=== PATIENT | female | born 1990 | race Caucasian/White ===

== ENCOUNTER 2020-09-28 10:49 | Emergency (ER) | payer OTHER, SELFPAY ==
[2020-09-28 11:02] VITALS: BP 134/93; PULSE 104; RESP 18; TEMP 36.9; O2SAT 98
--- NOTE | 2020-09-28 11:35 | ED.GENADULT ---
HPI - General Adult General Chief complaint: Upper Respiratory Infection Stated complaint: eye pressure Source: patient Mode of arrival: ambulatory Limitations: no limitations History of Present Illness HPI narrative: Patient presents for evaluation of sinus congestion and drainage for the last two days. She states that nasal drainage has been thick yellow/green mucopurulent in nature. She checked her temperature with a reading of 100 degrees Fahrenheit. She has had seventeen ENT surgeries including tympanoplasty. She states she has recurrent sinus infections. Typically she requires oral antibiotics to resolve her symptoms. She has been using her proair, which normally helps. She has also been using Vicks. She denies any chest pain, SOB, cough, nausea, vomiting, loss of taste/smell. No recent sick contacts. She does not smoke. ENT is Dr Herbert. Related Data Allergies Allergy/AdvReac Type Severity Reaction Status Date / Time codeine Allergy Rash Verified 09/28/20 11:02 [facility] Past Medical History Medical History (Updated 09/28/20 @ 11:44 by MYRA Garcia, ) History of PCOS Recurrent sinusitis Surgical History Surgical History H/O adenoidectomy History of tympanoplasty Family History Family History Mother Hypertension Father Hypertension Social History Social History Smoking status: Never smoker Alcohol intake: never Substance use: never Living arrangements: with family Gender identity (if verbalized by the patient): Female Sexual Orientation (if Verbalized by the Patient): Straight or Heterosexual Spiritual care concerns: No Exam Narrative: Exam Narrative: GENERAL: Well-appearing, well-nourished, and in no acute distress. HEAD: Normocephalic, atraumatic. EYES: PERRLA and EOMI. ENT: Nares clear, no rhinorrhea or epistaxis. Mucous membranes moist. Oropharynx without tonsillar hypertrophy exudate or other lesions. Bilateral maxillary sinus tenderness. right TM is completely opacified. Left TM with mild scarring and erythema present NECK: Supple. No adenopathy or masses. No carotid bruits or JVD CHEST: Clear to auscultation. No respiratory distress. No wheezes rales or rhonchi HEART: Regular rate and rhythm. No murmur heard. Normal peripheral pulses. ABDOMEN: Soft, nontender, nondistended, normal active bowel sounds. EXTREMITIES: Normal range of motion. No edema. SKIN: Warm, dry, no rash. NEURO: No focal deficits. Alert and oriented x3. PSYCH: Normal mood and affect. Course Course Emergency Course: This is a 29-year-old female who presents with a 2-day history of mucopurulent discharge from both nares. She has a history of recurrent sinusitis. She is required antibiotic therapy in the past as recommended by ENT. [id number] therapies have not been effective. Given the presence of mucopurulent discharge with recurrent infections and 17 ENT surgeries in the past, will treat with oral antibiotics. She was advised to follow-up with ENT and return for any worsening symptoms. Blood pressure mildly elevated while here. No chest pain or SOB so was instructed to follow up outpatient for further evaluation of BP. Vital Signs Vital signs: Vital Signs Temperature 36.9 C 09/28/20 11:02 Pulse Rate 104 H 09/28/20 11:02 Respiratory Rate 18 09/28/20 11:02 Blood Pressure 134/93 H 09/28/20 11:02 Pulse Oximetry 98 09/28/20 11:02 Temperature 36.9 C 09/28/20 11:02 Pulse Rate 104 H 09/28/20 11:02 Respiratory Rate 18 09/28/20 11:02 Blood Pressure 134/93 H 09/28/20 11:02 Pulse Oximetry 98 09/28/20 11:02 Medical Decision Making Differential Diagnosis Differential Diagnosis: Acute bacterial rhinosinusitis versus otitis media versus viral URI versus other Vital Signs Vital
== END 2020-09-28 12:02 | disposition home or self-care (01) ==
PROVIDERS: Emergency Provider Nurse Practitioner
DX: J00 Acute nasopharyngitis [common cold] (principal); J01.90 Acute sinusitis, unspecified; R03.0 Elevated blood-pressure reading, without diagnosis of hypertension; E28.2 Polycystic ovarian syndrome
CPT/HCPCS: 99203; G0463

== ENCOUNTER 2021-04-06 10:21 | Emergency (ER) | payer OTHER, SELFPAY ==
[2021-04-06 10:45] VITALS: BP 127/94; PULSE 102; RESP 16; TEMP 36.8; O2SAT 100
--- NOTE | 2021-04-06 12:00 | ED.URI ---
HPI - URI/Sore Throat General Chief Complaint: Upper Respiratory Infection Stated Complaint: Congestion,Cough Time Seen by Provider: 04/06/21 11:30 Source: patient and RN notes reviewed Mode of arrival: ambulatory Limitations: no limitations History of Present Illness HPI Narrative: Patient presents today complaining of 5-day history of nasal congestion, cough, sneezing. Denies fever, shortness of breath. She has been taking Tylenol Cold and sinus for 3 days as well as occasionally using her ProAir for the past 2 days. Son with similar symptoms. Patient reports she does have some slight asthma symptoms and states she uses the ProAir mostly as a preventative for bronchitis. Reports she has been exposed to RSV. MD elicited complaint: cough and nasal congestion Related Data Allergies Allergy/AdvReac Type Severity Reaction Status Date / Time codeine Allergy Other Verified 04/06/21 11:28 Review of Systems Review of Systems: CONSTITUTIONAL: Denies body aches, fever, chills, or sweats. EYES: Denies visual changes, redness, or discharge. ENT: Denies rhinorrhea,sore throat, or otalgia.+ Congestion, sneezing CARDIOVASCULAR: Denies chest pain, palpitations, or edema. RESPIRATORY: Denies dyspnea.+ Cough GASTROINTESTINAL: Denies abdominal pain, nausea, vomiting, or diarrhea. GENITOURINARY: Denies dysuria or hematuria. SKIN: Denies rash, itching, or wounds. MUSCULOSKELETAL: Denies back pain, joint pain, or myalgia. NEUROLOGIC: Denies headache, numbness, tingling, or weakness. PSYCH: Denies depression or anxiety. [facility] Past Medical History Medical History History of PCOS Recurrent sinusitis Surgical History Surgical History H/O adenoidectomy History of tympanoplasty Family History Family History Mother Hypertension Father Hypertension Social History Social History Smoking status: Never smoker Alcohol intake: never Substance use: never Gender identity (if verbalized by the patient): Female Sexual Orientation (if Verbalized by the Patient): Straight or Heterosexual Spiritual care concerns: No Comments At time of signature, I have reviewed and agree with nursing past medical, surgical, social and family history unless otherwise noted. Please see nursing chart for further information. There is no relevant family history pertinent to the presenting complaint Exam Narrative: GENERAL: Well-appearing, well-nourished, and in no acute distress. HEAD: Normocephalic, atraumatic. EYES: EOMI. No redness or drainage. Conjunctivae normal. ENT: Mucous membranes pink and moist. Nares clear. No rhinorrhea. TMs normal bilaterally. Throat normal. Uvula midline. NECK: Normal AROM. Supple. No lymphadenopathy. CHEST: No respiratory distress. Clear to auscultation. HEART: Regular rate and rhythm. No murmur appreciated. Normal peripheral pulses. EXTREMITIES: Normal range of motion. No edema. SKIN: Warm, dry, no rash. Capillary refill normal. Normal skin turgor. NEURO: No focal deficits. Alert and oriented x3. Gait steady. PSYCH: Normal affect. No signs of depression or anxiety. Course Vital Signs Vital signs: Vital Signs Temperature 98.2 F 04/06/21 10:45 Pulse Rate 102 H 04/06/21 10:45 Respiratory Rate 16 04/06/21 10:45 Blood Pressure 127/94 H 04/06/21 10:45 Pulse Oximetry 100 04/06/21 10:45 Temperature 98.2 F 04/06/21 10:45 Pulse Rate 102 H 04/06/21 10:45 Respiratory Rate 16 04/06/21 10:45 Blood Pressure 127/94 H 04/06/21 10:45 Pulse Oximetry 100 04/06/21 10:45 Reviewed. Pt has been instructed to follow up with her PCP regarding her elevated blood pressure today. MDM - URI/Sore Throat Differential Diagnosis Differential diagnosis: Likely
== END 2021-04-06 12:07 | disposition home or self-care (01) ==
PROVIDERS: Emergency Provider Nurse Practitioner
DX: J06.9 Acute upper respiratory infection, unspecified (principal); Z20.822 Contact with and (suspected) exposure to COVID-19
CPT/HCPCS: 87420; 87426; 99213; C9803; G0463

== ENCOUNTER 2023-01-09 18:28 | Emergency (ER) | payer BC, SELFPAY ==
[2023-01-09 18:42] VITALS: BP 136/88; PULSE 85; RESP 18; TEMP 36.3; O2SAT 100
--- NOTE | 2023-01-09 18:42 | ED.URI ---
HPI - URI/Sore Throat General Chief Complaint: Upper Respiratory Infection Stated Complaint: sorethroat Time Seen by Provider: 01/09/23 18:42 Source: patient Mode of arrival: ambulatory Limitations: no limitations History of Present Illness HPI Narrative: 32-year-old female presents with complaint of sore throat, fatigue for 2 days. Patient's son diagnosed with strep throat. Patient is afebrile. Denies nausea vomiting diarrhea. All systems reviewed and negative except as noted above. Related Data Home Medications Medication Instructions Recorded Confirmed albuterol sulfate 90 mcg/actuation inhalation 01/09/23 aerosol inhaler (ProAir HFA) escitalopram oxalate 10 mg tablet mg 01/09/23 levonorgestrel 21 mcg/24 hours (8 intrauterine 01/09/23 yrs) 52 mg intrauterine device (Mirena) Allergies Allergy/AdvReac Type Severity Reaction Status Date / Time codeine Allergy Other Verified 04/06/21 11:28 Review of Systems Review of Systems: CONSTITUTIONAL: Denies fever, chills, or sweats. reports fatigue. EYES: Denies visual changes, redness, or discharge. ENT: Denies rhinorrhea, congestion Reports sore throat. Denies otalgia. CARDIOVASCULAR: Denies chest pain, palpitations, or edema. RESPIRATORY: Denies cough or dyspnea. GASTROINTESTINAL: Denies abdominal pain, nausea, vomiting, or diarrhea. GENITOURINARY: Denies dysuria or hematuria. SKIN: Denies rash or itching. MUSCULOSKELETAL: Denies back pain, joint pain, or myalgia. NEUROLOGIC: Denies headache, numbness, or weakness. PSYCHIATRIC: Denies anxiety or depression. All other systems reviewed are negative, except as documented in HPI. [facility] Past Medical History Medical History History of PCOS Recurrent sinusitis Surgical History Surgical History H/O adenoidectomy History of tympanoplasty Family History Family History Mother Hypertension Father Hypertension Social History Social History Smoking status: Never smoker Alcohol intake: never Substance use: never Living arrangements: with family Gender identity (if verbalized by the patient): Female Sexual Orientation (if Verbalized by the Patient): Straight or Heterosexual Spiritual care concerns: No Comments At time of signature, agree with nursing past medical, surgical, social and family history. There is no relevant family history pertinent to the presenting complaint. Exam Narrative: GENERAL: This is a well-nourished, well-developed patient, in no apparent distress. HEAD: normocephalic, atraumatic. EYES: PERRL. Sclera clear/white. Vision is grossly intact. EARS: External ears normal, auditory canals clear and without drainage, TMs normal without perforation. Hearing grossly intact. NOSE: External nose normal with no obvious nasal discharge, nares without redness, no rhinorrhea. THROAT: Mucous membranes moist, Mild erythema to posterior pharynx without consult swelling or exudates. NECK: Neck supple, non-tender without lymphadenopathy, masses or thyromegaly. CARDIOVASCULAR: Regular rate and rhythm without murmurs, gallops, or rubs. RESPIRATORY: Clear to auscultation. Breath sounds equal bilaterally. No wheezes, rales, or rhonchi. SKIN: warm, Dry, intact with no suspicious lesions or rash, good texture and turgor. NEURO: awake, alert, and oriented to person, place and time. There were no obvious focal neurologic abnormalities. EXTREMITIES: No joint tenderness, effusion, or edema noted. No calf tenderness. Negative Homans sign bilaterally. BACK: Nontender without deformity. No CVA tenderness. Course Course Level of Care: Express Care Visit Vital Signs Vital signs: Reviewed MDM - URI/Sore Throat MDM Narrative Medical
[2023-01-09 18:44] VITALS: BP 136/88; PULSE 85; RESP 18; TEMP 36.3; O2SAT 100
== END 2023-01-09 18:56 | disposition home or self-care (01) ==
PROVIDERS: Emergency Provider Nurse Practitioner Family
DX: J02.9 Acute pharyngitis, unspecified (principal); E28.2 Polycystic ovarian syndrome
CPT/HCPCS: 87081; 87880; 99213; G0463